=== PATIENT | female | born 1985 | race Asian ===

== ENCOUNTER 2018-08-16 09:02 | Emergency (ER) | payer MEDICAID ==
[~2018-08-16] VITALS: Ht 149.9 cm; Wt 72.6 kg
[2018-08-16 09:03] VITALS: BP 132/86; Ht 149.9 cm; Wt 72.6 kg
== END 2018-08-16 10:13 | disposition home or self-care (01) ==
LOC: ED 09:02
DX: N63.0 Unspecified lump in unspecified breast (principal); E66.9 Obesity, unspecified; Z68.32 Body mass index [BMI] 32.0-32.9, adult